=== PATIENT | female | born 1990 | race African-American/Black ===

== ENCOUNTER 2018-04-25 16:42 | Emergency (ER) | payer BC ==
--- NOTE | 2018-04-25 17:04 | ER Document Report ---
ED GI/ - General Chief Complaint: OB Problem (<20wks) Stated Complaint: VAGINAL BLEEDING Time Seen by Provider: 04/25/18 17:00 Mode of Arrival: Ambulatory Information source: Patient Notes: Chief complaint: Spotting History of complain:( obtained from----patient) 27 years old female who is 5 week presents today with spotting on and off since this afternoon. Slight abdominal discomfort. No fever chills or other constitutional symptoms and denies any dysuria frequency urgency. Onset: This afternoon sudden Duration: This afternoon Severity: Mild Quality: Not applicable Context: Exacerbating factor and relieving factors: Not applicable REVIEW OF SYSTEMS: CONSTITUTIONAL : Denies fever, chills, or sweats. Denies recent illness. EENT: Denies eye, ear, throat, or mouth pain or symptoms. Denies nasal or sinus congestion or discharge. Denies throat, tongue, or mouth swelling or difficulty swallowing. CARDIOVASCULAR: Denies chest pain. Denies palpitations or racing or irregular heart beat. Denies ankle edema. RESPIRATORY: Denies cough, cold, or chest congestion. Denies shortness of breath, difficulty breathing, or wheezing. GASTROINTESTINAL: Denies distention. Denies nausea, vomiting, or diarrhea. Denies blood in vomitus, stools, or per rectum. Denies black, tarry stools. Denies constipation. GENITOURINARY: Denies difficulty urinating, painful urination, burning, frequency, blood in urine, or discharge. FEMALE GENITOURINARY: Denies vaginal bleeding, heavy or abnormal periods, irregular periods. Denies vaginal discharge or odor. MUSCULOSKELETAL: Denies back or neck pain or stiffness. Denies joint pain or swelling. SKIN: Denies rash, lesions or sores. HEMATOLOGIC : Denies easy bruising or bleeding. LYMPHATIC: Denies swollen, enlarged glands. NEUROLOGICAL: Denies confusion or altered mental status. Denies passing out or loss of consciousness. Denies dizziness or lightheadedness. Denies headache. Denies weakness or paralysis or loss of use of either side. Denies problems with gait or speech. Denies sensory loss, numbness, or tingling. Denies seizures. PSYCHIATRIC: Denies anxiety or stress. Denies depression, suicidal ideation, or homicidal ideation. ALL OTHER SYSTEMS REVIEWED AND NEGATIVE. PHYSICAL EXAMINATION: GENERAL: Well-appearing, well-nourished and in no acute distress. HEAD: Atraumatic, normocephalic. EYES: Pupils equal round and reactive to light, extraocular movements intact, conjunctiva are normal. ENT: Nares patent, oropharynx clear without exudates. Moist mucous membranes. NECK: Normal range of motion, supple without lymphadenopathy LUNGS: Breath sounds clear to auscultation bilaterally and equal. No wheezes rales or rhonchi. HEART: Regular rate and rhythm without murmurs ABDOMEN: Soft, nontender, nondistended abdomen. No guarding, no rebound. No masses appreciated. Examination of genitals-deferred Musculoskeletal: Normal range of motion, no pitting or edema. No cyanosis. NEUROLOGICAL: Cranial nerves grossly intact. Normal speech, normal gait. Normal sensory, motor exams PSYCH: Normal mood, normal affect. SKIN: Warm, Dry, normal turgor, no rashes or lesions noted. Dictation was performed using [employer] voice recognition software TRAVEL OUTSIDE OF THE [place] IN LAST 30 DAYS: No - HPI Notes: 04/25/18 17:03 Dictated - Related Data Allergies/Adverse Reactions: Penicillins Allergy (Verified 04/25/18 16:43) Past Medical History - Social History Smoking Status: Never Smoker Frequency of alcohol use: None Drug Abuse: None Lives with: Family Family History: Reviewed & Not Pertinent Patient has suicidal ideation: No Patient has homicidal ideation: No Renal/ Medical History: Denies: Hx Peritoneal Dialysis Review of Systems - Review of Systems Notes: Dictated Physical Exam - Vital signs Vitals: Temp Pulse Resp BP Pulse Ox 99.4 F 94 18 130/75 H 100 04/25/18 16:49 04/25/18 16:49 04/25/18 16:49 04/25/18 16:49 04/25/18 16:49 - Notes Notes: Dictated Course - Vital Signs Vital signs: Temp Pulse Resp BP Pulse Ox 99.4 F 94 18 130/75 H 100 04/25/18 16:49 04/25/18 16:49 04/25/18 16:49 04/25/18 16:49 04/25/18 16:49 - Laboratory Result Diagrams: 04/25/18 17:50 Laboratory results interpreted by me: 04/25/18 04/25/18 17:50 17:50 Hgb 9.7 L Hct 29.9 L MCV 73 L MCH 23.6 L RDW 16.2 H Beta HCG, Quant 66742.00 H - Diagnostic Test Radiology reviewed: Reports reviewed - 5 weeks and 5 day productive concept in the uterus. Discharge - Discharge Clinical Impression: Threatened Qualifiers: Weeks of gestation: less than 8 weeks Qualified Code(s): Z3A.01 - Less than 8 weeks gestation of Condition: Fair Disposition: HOME, SELF-CARE Instructions: Threatened Abortions ( Patients), ([facility]) Referrals: CATHLEEN PARSONS MD [Primary Care Provider] - Follow up as needed
--- NOTE | 2018-04-25 18:07 | RADIOLOGY REPORT (SQ) ---
EXAM DESCRIPTION: U/S OB TRANSVAG W/DOPPLER COMPLETED DATE/TIME: 04/25/2018 5:45 pm REASON FOR STUDY: /bleeding COMPARISON: None. TECHNIQUE: Transvaginal static and realtime grayscale images acquired of the pelvis. Additional garret cted spectral and color Doppler images recorded. All images stored on PACs. bHCG: Not available. CLINICAL DATES: LMP 03/23/2018. 4 weeks 5 days. LIMITATIONS: None. FINDINGS: FETUS: Living intrauterine . ULTRASOUND EGA: A 1 cm gestational sac would suggest a gestational 5 weeks 5 days. ULTRASOUND ROSAURA: 12/21/2018 CRL: Not seen FHR: Not seen beats per minute. SUBCHORIONIC BLEED: No SIZE OF BLEED: Not applicable. UTERUS: There is a 5 cm shadowing structure in the uterus likely a uterine fibroid. CERVICAL LENGTH: 2.4 cm. Closed. RIGHT ADNEXA: Normal ovary with normal vascular flow. 3.6 x 2.5 x 2.4 cm. No adnexal free fluid. No adnexal masses. LEFT ADNEXA: Ovary not seen. No adnexal free fluid. No adnexal masses. FREE FLUID: None. OTHER: No other significant finding. IMPRESSION: 1. There is a 1 cm gestational sac that would suggest gestation 5 weeks 5 days. pole is not seen. Follow-up as clinically indicated. 2. There is a 5 cm shadowing structure in the myometrium that likely represents a fibroid. Trimester of : First - 0 to 13 weeks. TECHNICAL DOCUMENTATION: JOB ID: [id number] [employer]- All Rights Reserved Reading location - IP/workstation name: [email or web address]
[2018-04-25 18:08] LABS: ABSOLUTE LYMPHOCYTES (AUTO) 2.1 10^3/uL (0.5-4.7); ABSOLUTE MONOCYTES (AUTO) 0.6 10^3/uL (0.1-1.4); ABSOLUTE NEUT (AUTO) 3.9 10^3/uL (1.7-8.2); BASOPHILS % (AUTO) 0.6 % (0-2); EOSINOPHILS % (AUTO) 0.4 % (0-6); HEMATOCRIT 29.9 % (36.0-47.0); HEMOGLOBIN 9.7 g/dL (12.0-15.5); LYMPHOCYTES % (AUTO) 31.5 % (13-45); MEAN CORPUSCULAR HEMOGLOBIN 23.6 pg (27.0-33.4); MEAN CORPUSCULAR HGB CONC 32.4 g/dL (32.0-36.0); MEAN CORPUSCULAR VOLUME 73 fl (80-97); MONOCYTES % (AUTO) 9.3 % (3-13); PLATELET COUNT 411 10^3/uL (150-450); RED CELL DISTRIBUTION WIDTH 16.2 % (11.5-14.0); SEGMENTED NEUTROPHILS % (AUTO) 58.2 % (42-78); TOTAL CELLS COUNTED % (AUTO) 100 %; WHITE BLOOD COUNT 6.7 10^3/uL (4.0-10.5)
[2018-04-25 19:10] VITALS: BP 124/85
== END 2018-04-25 19:04 | disposition home or self-care (01) ==
LOC: ER 16:42
DX: O20.0 Threatened abortion (principal); O26.851 Spotting complicating pregnancy, first trimester; Z3A.01 Less than 8 weeks gestation of pregnancy; Z88.0 Allergy status to penicillin
CPT/HCPCS: 36415; 76817; 84702; 85025; 93976; 99284

== ENCOUNTER 2018-08-10 17:18 | Inpatient (IN) | payer BC ==
[~2018-08-10 17:18] MED LIST: MORPHINE SULFATE 10 MG/ML INJ IV ONE
[2018-08-10] MEDS ORDERED: PROMETHAZINE HCL INJ 25 MG/1 ML VIAL IV ONE (17:20)
[2018-08-10] MEDS ORDERED: MORPHINE SULFATE 10 MG/ML INJ ONE ×2 (18:07→20:11)
--- NOTE | 2018-08-10 18:15 | Admission Physical ---
Datetime Report Generated by CPN: 08/10/2018 18:14 CURRENT ADMISSION Chief Complaint: Uterine Contractions; Other Indication for Induction: Not Applicable Admit Impression : , Intrauterine ; Active Labor; Obstetrical Complication Admit Plan: Admit to Unit; Observation/Evaluation ALLERGIES Medication Allergies: Yes Medication Allergies: Penicillins (04/25/2018) Latex: No Latex Allergies Food Allergies: no Environmental Allergies: no OBSTETRICAL HISTORY EDC: 12/26/2018 00:00 : 1 Para: 0 Term: 0 : 0 SAB: 0 IAB: 0 Ectopic: 0 Livin Cesareans: 0 VBACs: 0 Multiple Births: 0 Gestational Diabetes: No Rh Sensitization: No Incompetent Cervix: No MADDIE: No Infertility: No ART Treatment: No Uterine Anomaly: No IUGR: No Hx Previous C/S: No Macrosomia: No Hx Loss/Stillborn: No PIH: No Hx : No Placenta Previa/Abruption: No Depression/PP Depression: No PTL/PROM: No Post Hemorrhage: No Obstetrical History Comments: G1-current . Fibroids SEE RECORDS Alcohol: No Marijuana : No Cocaine: No Other Illicit Drugs: No Cigarettes: Never Smoker. [id number] MEDICAL HISTORY Diabetes: No Blood Transfusion: No Pulmonary Disease (Asthma, TB): No Breast Disease: No Hypertension: No Molecular Modeler Surgery: No Heart Disease: No Hosp/Surgery: No Autoimmune Disorder: No Anesthetic Complications: No Kidney Disease: No Abnormal Pap Smear: No Neuro/Epilepsy: No Psychiatric Disorders: No Other Medical Diseases: No Hepatitis/Liver Disease: No Significant Family History: No Varicosities/Phlebitis: No Trauma/Violence : No Thyroid Dysfunction: No INFECTIOUS HISTORY Gonorrhea: No Genital Herpes: No Chlamydia: No Tuberculosis: No Syphilis: No Hepatitis: No HIV/AIDS Exposure: No Rash or Viral Illness: No HPV: No PHYSICAL EXAM General: Normal HEENT: Normal Neurologic: Normal Thyroid: Normal Heart: Normal Lungs: Normal Breast: Normal Back: Normal Abdomen: Normal Genitourinary Exam: Normal Extremities: Normal DTRs: Normal Pelvic Type: Adequate Vital Signs: Reviewed; Within Normal Limits VAGINAL EXAM Dilatation: 10 Effacement: 100 Station: 0 MEMBRANES Pooling: Negative Membranes: Bulging Amniotic Fluid Color: Clear FETUS A EGA: 20.2 Monitoring: External US Admit Comment: d/w pt and regarding early GA of fetus and that interventions are not possible at this GA. explained that fetus will likely deliver in the next few hours. INFORMED CONSENT Signature: with User ID: [email or web address]
[2018-08-10] MEDS ORDERED: PROMETHAZINE HCL INJ 25 MG/1 ML VIAL ONE (18:17)
[2018-08-10 18:22] LABS: AMORPHOUS SEDIMENT,URINE TRACE /HPF; APPEARANCE,URINE SLIGHTLY-CLOUDY; BILIRUBIN,URINE NEGATIVE (NEGATIVE); COLOR,URINE YELLOW; GLUCOSE, URINE NEGATIVE (NEGATIVE); KETONES,URINE NEGATIVE (NEGATIVE); LEUKOCYTE ESTERASE,URINE TRACE (NEGATIVE); NITRITE,URINE NEGATIVE (NEGATIVE); PROTEIN,URINE NEGATIVE (NEGATIVE); URINE SPECIFIC GRAVITY 1.019; UROBILINOGEN,URINE NEGATIVE mg/dL (<2.0)
[2018-08-10 18:42] LABS: ABSOLUTE MONOCYTES (AUTO) 0.9 10^3/uL (0.1-1.4); ABSOLUTE NEUT (AUTO) 6.3 10^3/uL (1.7-8.2); BASOPHILS % (AUTO) 0.2 % (0-2); EOSINOPHILS % (AUTO) 0.3 % (0-6); HEMOGLOBIN 11.2 g/dL (12.0-15.5); MEAN CORPUSCULAR HEMOGLOBIN 26.2 pg (27.0-33.4); MEAN CORPUSCULAR HGB CONC 33.8 g/dL (32.0-36.0); MEAN CORPUSCULAR VOLUME 78 fl (80-97); MONOCYTES % (AUTO) 9.3 % (3-13); PLATELET COUNT 298 10^3/uL (150-450); RED BLOOD COUNT 4.25 10^6/uL (3.72-5.28); RED CELL DISTRIBUTION WIDTH 19.6 % (11.5-14.0); SEGMENTED NEUTROPHILS % (AUTO) 68.2 % (42-78); TOTAL CELLS COUNTED % (AUTO) 100 %; WHITE BLOOD COUNT 9.2 10^3/uL (4.0-10.5)
[2018-08-10 18:48] LABS: URINE AMPHETAMINES SCREEN NEGATIVE; URINE BARBITURATES SCREEN NEGATIVE; URINE BENZODIAZEPINES SCREEN NEGATIVE; URINE COCAINE SCREEN NEGATIVE; URINE MARIJUANA (THC) SCREEN NEGATIVE; URINE METHADONE SCREEN NEGATIVE; URINE PHENCYCLIDINE SCREEN NEGATIVE
[2018-08-10] MEDS ORDERED: MORPHINE SULFATE 10 MG/ML INJ IV ONE (21:00)
[2018-08-10] MEDS: RINGERS SOLUTION,LACTATED 1,000 ML IV PRN (21:30)
[2018-08-11] MEDS ORDERED: MORPHINE SULFATE 10 MG/ML INJ ONE ×4 (00:43→09:01)
[2018-08-11] MEDS ORDERED: MORPHINE SULFATE 10 MG/ML INJ IV ONE ×3 (03:41→06:30)
[2018-08-11] MEDS ORDERED: PROMETHAZINE HCL INJ 25 MG/1 ML VIAL IV ONE (09:49)
[2018-08-11] MEDS ORDERED: NALBUPHINE HCL INJ 10 MG/1 ML AMPULE INJ ONE (09:49)
[2018-08-11] MEDS ORDERED: PROMETHAZINE HCL INJ 25 MG/1 ML VIAL ONE (09:50)
[2018-08-11] MEDS ORDERED: NALBUPHINE HCL INJ 10 MG/1 ML AMPULE ONE (09:50)
[2018-08-11] MEDS: RINGERS SOLUTION,LACTATED 1,000 ML IV PRN (10:00)
[2018-08-11] MEDS ORDERED: OXYTOCIN 10 UNIT/ML VIAL ONE (10:04)
[2018-08-11] MEDS ORDERED: MISOPROSTOL 0.2 MG TABLET ONE (10:05)
[2018-08-11] MEDS ORDERED: OXYTOCIN/NORMAL SALINE 20 UNIT/1,000 ML RTUINJ ONE (10:05)
[2018-08-11] MEDS ORDERED: LIDOCAINE 1% INJ-PF (10 MG/ML) 30 ML SDV ONE (10:05)
[2018-08-11] MEDS ORDERED: DIPH/PERTUSS(ACELL)/TETANUS VAC/PF 0.5 ML SYR (>=10YO) IM PRN (12:29)
[2018-08-11] MEDS ORDERED: OXYTOCIN/NORMAL SALINE 20 UNIT/1,000 ML RTUINJ IV PRN (12:29)
[2018-08-11] MEDS ORDERED: DIBUCAINE 1% OINTMENT 28 GM TP PRN (12:29)
[2018-08-11] MEDS ORDERED: ACETAMINOPHEN WITH CODEINE #3 TABLET PO PRN ×2 (12:29)
[2018-08-11] MEDS ORDERED: HYDROCODONE/ACETAMINOPHEN 5-325 MG TABLET PO PRN (12:29)
[2018-08-11] MEDS ORDERED: BENZOCAINE/MENTHOL AEROSOL SPRAY 56 ML TOP PRN (12:29)
[2018-08-11] MEDS ORDERED: MEASLES,MUMPS&RUBELLA VACC/PF 0.5 ML VIAL SUBCUT PRN (12:29)
[2018-08-11] MEDS ORDERED: ZOLPIDEM TARTRATE 5 MG TABLET PO PRN (12:29)
[2018-08-11] MEDS ORDERED: IBUPROFEN 800 MG TABLET PO SCH (14:00)
[2018-08-11] MEDS ORDERED: IBUPROFEN 800 MG TABLET ONE (14:39)
--- NOTE | 2018-08-11 16:19 | Delivery Summary ---
Del Sum A-C Datetime Report Generated by CPN: 08/11/2018 16:19 DELIVERY PERSONNEL DELIVERY PERSONNEL: [id number] Delivery Doctor:: Jamilah Albright CNM Labor and Delivery Nurse:: EMILIA Tuckerub Tech/ASSOCIATE PROFESSOR: Karen Delacruz, ASSOCIATE PROFESSOR II MATERNAL INFORMATION Delivery Anesthesia: None Medications After Delivery: Pitocin Bolus-Please Comment; Cytotec 1000mcg Per Rectum/Vagina Meds After Delivery Comment: pitocin 20 units in 1 L NS bolusing per order Estimated Blood Loss (ml): 100 Maternal Complications: Other Complication Details: incompetent cervix Provider Comments: pt having strong pressure urges and back pain, BOW hanging out of vagina, pt asked me ROM ROM with large amount of clear fluid, baby in breech presentation, pt started pushing and delivery of non viable infant, no HR, laced in bassinette to be cleaned per request of parents, parents crying appropriately, scant bleeding, placenta not detaching, called Dr. Sandra, wait x 1 hour, explained to pt and and they understand, will monitor closely LABOR SUMMARY EDC: 12/26/2018 00:00 No. Babies in Womb: 1 Attempted: No Labor Anesthesia: IV Sedation LABOR INFORMATION Reason for Induction: Not Applicable Complete Dilatation: 08/10/2018 18:11 Oxytocin: N/A Group B Beta Strep: unknown Antibiotics # of Doses: 0 Steroids Given: None Reason Steroids Not Administered: Not Applicable MEMBRANES Membranes Rupture Method: Artificial Rupture of Membranes: 08/11/2018 11:54 Length of Rupture (hr): 0.12 Amniotic Fluid Color: Clear Amniotic Fluid Amount: Moderate Amniotic Fluid Odor: Normal STAGES OF LABOR Stage 2 hr: 17 Stage 2 min: 50 Stage 3 hr: 1 Stage 3 min: 3 VAGINAL DELIVERY Episiotomy: None Laceration #1: None Laceration Extension #1: N/A Laceration Repair: Not Applicable Sponge Count Correct: N/A Sharps Count Correct: N/A BABY A INFORMATION Infant Delivery Date/Time: 08/11/2018 12:01 Method of Delivery: Vaginal Born in Route : No : N/A Forceps: N/A Vacuum Extraction: N/A Shoulder Dystocia : No PRESENTATION/POSITION BABY A Presentation: Breech Cephalic Presentation: N/A PLACENTA INFORMATION BABY A Placenta Delivery Time : 08/11/2018 13:04 Placenta Method of Delivery: Spontaneous Placenta Status: Delivered SCORES BABY A Heart Rate 1 min: Absent Resp Effort 1 min: Absent Reflex Irritability 1 min: No Response Muscle Tone 1 min: Flaccid Color 1 min: Blue/Pale SCORE 1 MIN: 0 Heart Rate 5 min: Absent Resp Effort 5 min: Absent Reflex Irritability 5 min: No Response Muscle Tone 5 min: Flaccid Color 5 min: Blue/Pale SCORE 5 MIN: 0 INFANT INFORMATION BABY A Gestational Age at Delivery: 20.3 Gestational Status: - <34 Weeks Infant Outcome : Stillborn Sex: Female WEIGHT/LENGTH BABY A Infant Birthweight (gm): 300 Weight (lb): 0 Weight (oz): 11 Infant Length (in): 10.50 Length (cm): 26.67 CORD INFORMATION BABY A Nuchal Cord : N/A Cord Blood Taken: N/A Infant Suction: None ASSESSMENT BABY A Skin to Skin: No BABY B INFORMATION : N/A
[2018-08-12 07:17] LABS: MEAN CORPUSCULAR HEMOGLOBIN 26.3 pg (27.0-33.4); MEAN CORPUSCULAR HGB CONC 34.1 g/dL (32.0-36.0); MEAN CORPUSCULAR VOLUME 77 fl (80-97); PLATELET COUNT 229 10^3/uL (150-450); RED BLOOD COUNT 2.72 10^6/uL (3.72-5.28); RED CELL DISTRIBUTION WIDTH 19.4 % (11.5-14.0); WHITE BLOOD COUNT 11.2 10^3/uL (4.0-10.5)
[2018-08-12 07:24] LABS: HEMOGLOBIN 7.2 g/dL (12.0-15.5)
--- NOTE | 2018-08-12 11:01 | PDOC DISCHARGE SUMMARY ---
General - Admit/Disc Date/PCP Admission Date/Primary Care Provider: 08/10/18 18:25 CARLOS EATON MD Discharge Date: 08/12/18 - Discharge Diagnosis (1) 20 weeks gestation of Is this a current diagnosis for this admission?: Yes (2) delivery Is this a current diagnosis for this admission?: Yes (3) Incompetence of cervix Is this a current diagnosis for this admission?: Yes (4) Fibroid uterus Is this a current diagnosis for this admission?: Yes - Additional Information Discharge Diet: Regular Discharge Activity: Activity As Tolerated, Balance Activity w/Rest, No Lifting Over 10 Pounds, No Lifting/Push/Pulling, Pelvic Rest, No tub bath Prescriptions: Ibuprofen [Motrin 800 mg Tablet] 800 mg PO Q8 PRN #30 tablet PRN Reason: Home Medications: Ibuprofen [Motrin 800 mg Tablet] 800 mg PO Q8 PRN #30 tablet 08/12/18 History of Present Illness Patient complains of: Contractions History of Present Illness: DEE EATON is a 27 year old female Physical Exam - Physical Exam Vital Signs: Temp Pulse Resp BP Pulse Ox 98.0 F 80 16 99 08/12/18 10:29 08/12/18 10:29 08/12/18 10:29 08/12/18 10:29 Intake & Output 08/11/18 08/12/18 08/13/18 06:59 06:59 06:59 Intake Total 1000 1000 Balance 1000 1000 Weight 98.883 kg General appearance: PRESENT: no acute distress Respiratory exam: PRESENT: clear to auscultation yessy Cardiovascular exam: PRESENT: RRR GI/Abdominal exam: PRESENT: normal bowel sounds, soft Extremities exam: ABSENT: calf tenderness, clubbing, full ROM, joint swelling, pedal edema, tenderness, +1 edema, +2 edema, other Result Laboratory Results: 08/12/18 06:51 08/12/18 06:51 WBC 11.2 H RBC 2.72 L Hgb 7.2 L D Hct 21.0 L MCV 77 L MCH 26.3 L MCHC 34.1 RDW 19.4 H Plt Count 229 Plan Discharge Plan: Plan: 1. Continue care 2. Anticipate discharge later today 3. Follow-up in the office in 4 weeks for exam or sooner if needed Time Spent: Greater than 30 Minutes - Patient had many questions, which were answered. She was instructed to follow-up in the office in 4 weeks. Patient was indecisive whether she wanted to start work in 2 weeks or 4 weeks. Two return to work notes were given. Patient was also concerned about a yeast infection. Prescription for Diflucan given, to have on hand. She also wanted to discuss her fibroid uterus. I informed her that if the fibroid is determined to be submucosal, it can be hysteroscopically reduced/removed. She will be re-evaluated later.
== END 2018-08-12 11:19 | disposition home or self-care (01) | DRG 805 ==
LOC: LC 17:18 → LR 18:25
PROVIDERS: ADMIT Obstetrics & Gynecology; ATTEND Obstetrics & Gynecology
PROC: 10E0XZZ Delivery of Products of Conception, External Approach (ICD-10-PCS; principal; 2018-08-11)
DX: O34.32 Maternal care for cervical incompetence, second trimester (principal); O60.12X0 Preterm labor second trimester with preterm delivery second trimester, not applicable or unspecified; Z37.1 Single stillbirth; O34.12 Maternal care for benign tumor of corpus uteri, second trimester; D25.9 Leiomyoma of uterus, unspecified; Z3A.20 20 weeks gestation of pregnancy; Z88.0 Allergy status to penicillin
CPT/HCPCS: 36415; 80307; 81001; 85025; 85027; 86592; 86850; 86900; 86901; 88305; J2270; J2300; J2550; J2590; J3490